=== PATIENT | female | born 1950 | race Caucasian/White ===

== ENCOUNTER 2021-04-29 09:39 | Inpatient (IN) | payer OTHER, MEDICAID, SELFPAY ==
[~2021-04-29] VITALS: Ht 149.9 cm; Wt 43.5 kg
[2021-04-29 09:57] VITALS: BP_SYST 138
--- NOTE | 2021-04-29 09:57 | NUR ---
Placed in room 5 . Placed on monitor worker, blood pressure machine and pulse oximeter. To gown for exam. Side rails up.
--- NOTE | 2021-04-29 09:58 | NUR ---
Pt came into the ER with complaint of abdominal pain 11/22 with N/V/D with incontinence bowel and bladder. Pt reports blood in urine last night. Pt maki spelvic prolapse. Pt is AAOX4 speaking full sentences with generalized weakness. Breathing is even and unlabored. VSS resting in gurney.
--- NOTE | 2021-04-29 10:05 | NUR ---
Pt placed on bedpan for urine specimen.
--- NOTE | 2021-04-29 10:19 | NUR ---
ER at bedside examining patient.
--- NOTE | 2021-04-29 10:20 | NUR ---
# 18 gauge angiocath placed to LAC. Use of asceptic technique. Opsite placed over site. Blood return noted. Blood for lab drawn from site. Flushed with 10 cc of normal saline. No evidence of infiltration noted. Patient tolerated well.
--- NOTE | 2021-04-29 10:20 | NUR ---
Blood collected and sent to lab.
[2021-04-29] MEDS ORDERED: NACL 0.9% 1,000 ML IV ONE (10:30)
--- NOTE | 2021-04-29 10:30 | NUR ---
Stool collected and sent to lab.
--- NOTE | 2021-04-29 10:35 | NUR ---
Covod swab collected and sent to lab.
[2021-04-29 10:39] LABS: HEMATOCRIT 38.7 % (36-48); HEMOGLOBIN 13.3 g/dL (12.0-16.0); MEAN CORPUSCULAR HEMOGLOBIN 31 pg (27-31); MEAN CORPUSCULAR HGB CONC 34 % (32-36); MEAN CORPUSCULAR VOLUME 89 fL (79.0-98.0); PLATELET COUNT (AUTO) 129 K/uL (130-430); RED BLOOD CELL COUNT(AUTO) 4.37 MIL/uL (4.2-6.2); RED CELL DISTRIBUTION WIDTH 13.3 % (9.0-15.0); WHITE BLOOD COUNT (AUTO) 23.5 K/uL (4.8-10.8)
--- NOTE | 2021-04-29 10:52 | NUR ---
Patient transported to radiology via wheelchair, accompanied by tech.
[2021-04-29 11:05] LABS: CALCIUM 8.8 mg/dL (8.4-11.0); CREATININE 1.03 mg/dL (0.55-1.30); POTASSIUM 3.2 mmol/L (3.5-5.1)
--- NOTE | 2021-04-29 11:11 | NUR ---
Pt back from CT.
[2021-04-29] MEDS ORDERED: cefTRIAXone 1 GM VIAL IM ONE (11:15)
--- NOTE | 2021-04-29 11:20 | NUR ---
Pt does not take any home medications
[2021-04-29] MEDS ORDERED: cefTRIAXone 1 GM VIAL ONE (11:28)
[2021-04-29] MEDS ORDERED: cefTRIAXone 1 GM in D5W 50 ML IV ONE (11:30)
--- NOTE | 2021-04-29 12:35 | NUR ---
Pt will go to 101A.
--- NOTE | 2021-04-29 12:35 | NUR ---
Called for a bed. Spoek with charge. Awaiting bed placement.
--- NOTE | 2021-04-29 12:43 | NUR ---
Patient will be admitted to care of Dr. Milan. Admitted to Medsurg unit. Will go to room 101A. Belongings list completed. Complete and up to date summary report printed. SBAR report to be given at bedside with opportunity for questions.
--- NOTE | 2021-04-29 12:44 | NUR ---
Transferred pt to [facility] floor on [facility] accompanied by staff.
[2021-04-29] MEDS ORDERED: POTASSIUM CHLORIDE 20 MEQ TAB.PRT.SR PO ONE (12:45)
[2021-04-29] MEDS: NACL 0.9% 1,000 ML IV SCH ×2 (13:45→23:33)
[2021-04-29] MEDS ORDERED: metroNIDAZOLE 500 mg/NS 100 ML IV SCH (14:00)
--- NOTE | 2021-04-29 14:11 | NUR ---
CONSULTATION PAGED/CALLED Reason for Consultation: [] BILATERAL HYDRONEPHROSIS Person Who was Notified: [] JULIA Consulting Physician: [] Ferny HERNANDEZ Production Weigher Specialty: [] UROLOGIST Ordering Physician: [] DR REYES
[2021-04-29] MEDS ORDERED: metroNIDAZOLE 500 mg/NS 100 ML IV ONE (14:15)
[2021-04-29 14:34] VITALS: BP_SYST 169
[2021-04-29 15:00] VITALS: BP_SYST 110
[2021-04-29 15:12] LABS: BAND % (MANUAL) 25 % (0-6); BASOPHILS % (MANUAL) 0 % (0-2); EOSINOPHILS % (MANUAL) 0 % (0-7); LYMPHOCYTES % (MANUAL) 1 % (20-46); MONOCYTES % (MANUAL) 1 % (0-11)
[2021-04-29] MEDS: VANCOMYCIN HCL ORAL SOLUTION 250 MG/5 ML, 80 ML PO SCH ×3 (15:35→21:05)
[2021-04-29 15:36] VITALS: BP_SYST 147
--- NOTE | 2021-04-29 16:08 | NUR ---
ALERT, ORIENTED, ANXIOUS LOOKING WOMAN, KEEPS ON HOLDING HER PRIVATE AREA, " CANT HOLD MY URINE, NOR MY BOWEL MOVEMENT. TOOK WEAK TO GET TO THE BATHROOM, RIGHT NOW ON DIAPER, WHICH NEEDS BEING CHANGED OFTEN. UTERINE PROLAPSE NOTICEABLY, ( OUTSIDE THE PUBIC AREA), TOTAL CARE. IVF STARTS AND VANCO PO GIVEN FOR C DIFF. FLAGYL IVPB JUST NOW BEGUN, SECONDARY TO UTI ( WHICH HAS HAPPENED FOR THIS PATIENT)
--- NOTE | 2021-04-29 18:48 | NUR ---
DR LYNCH CALLED, AND ALVES #16 INSERTED, WITHOUT ANY PROBLEM, DESPITE THE UTERINE PROLAPSE. DIARRHEA SUBSIDED.
--- NOTE | 2021-04-29 19:15 | NUR ---
OPENING NOTE REPORT RECEIVED FROM DAYSHIFT NURSE. PATIENT RECEIVED LYING IN BED, AWAKE, NO S/S OF ACUTE DISTRESS NOTED. BREATHING EVEN AND UNLABORED. HOB SLIGHTLY RAISED, DRINKING WATER. IVF INFUSING WELL, IV SITE PATENT, NO SIGNS OF INFILTRATION OR INFECTION NOTED. ALVES ATTACHED, SECURED, AND DRAINING BY GRAVITY. CALL LIGHT WITH PATIENT. BED ALARM ON. BED IS LOCKED AND AT LOWEST POSITION. WILL CONTINUE TO MONITOR.
[2021-04-29 20:00] VITALS: BP_SYST 138
[2021-04-29] MEDS: metroNIDAZOLE 500 mg/NS 100 ML IV SCH (21:05)
--- NOTE | 2021-04-29 21:05 | NUR ---
MED PASS/REFUSED MIDNIGHT VITALS SCHEDULED MEDICATIONS ADMINISTERED AT THIS TIME. PATIENT STATED THAT SHE WANTS TO SLEEP, SHE HASNT GOTTEN GOOD SLEEP LATELY, PATIENT REQUESTED NOT TO BE WOKEN UP AT MIDNIGHT FOR VITALS. PATIENT EDUCATED ON PURPOSE AND BENEFITS OF VITAL SIGNS, PATIENT VERBALIZED UNDERSTANDING AND STILL REFUSES. WILL CONTINUE TO MONITOR, CALL LIGHT WITH PATIENT. BED ALARM ON.
--- NOTE | 2021-04-30 00:45 | NUR ---
ROUNDS PATIENT IN BED, ASLEEP, NO SIGNS OF DISCOMFORT NOTED. CHEST RISE AND FALL EVEN BILATERALLY. IVF INFUSING WELL. CALL LIGHT WITH PATIENT. WILL CONTINUE TO MONITOR.
[2021-04-30 03:54] LABS: COLOR,URINE STRAW (YELLOW)
[2021-04-30 03:55] LABS: BILIRUBIN,URINE NEGATIVE (NEGATIVE); BLOOD, URINE 3+ (NEGATIVE); CLARITY/URINE HAZY (CLEAR); GLUCOSE,URINE NEGATIVE (NEGATIVE); KETONES,URINE NEGATIVE (NEGATIVE); PROTEIN URINE TRACE (NEGATIVE)
[2021-04-30 03:56] LABS: LEUKOCYTE ESTERASE ,URINE 3+ (NEGATIVE); NITRITE, URINE NEGATIVE (NEGATIVE); UROBILINOGEN,URINE 0.2 (0.2-1.0)
[2021-04-30 03:58] LABS: RBC,URINE 0-3 /HPF (0-3); WBC,URINE 50-80 /HPF (0-3)
[2021-04-30 03:59] LABS: BACTERIA,URINE FEW /HPF (None Seen)
[2021-04-30] MEDS: metroNIDAZOLE 500 mg/NS 100 ML IV SCH ×3 (05:07→22:07)
--- NOTE | 2021-04-30 06:31 | NUR ---
CLOSING NOTE PATIENT IN BED, SLEEPING. NO S/S OF ACUTE DISTRESS NOTED. BREATHING EVEN AND UNLABORED. IVF INFUSING WELL. IV SITE PATENT, NO SIGNS OF INFILTRATION OR INFECTION NOTED. ALVES ATTACHED, SECURED, AND DRAINING BY GRAVITY. ALL NEEDS MET THROUGHOUT SHIFT. FALL, SAFETY PRECAUTIONS MAINTAINED THROUGHOUT SHIFT. WILL CONTINUE TO MONITOR UNTIL PATIENT CARE IS ENDORSED TO ONCOMING DAYSHIFT NURSE.
[2021-04-30 08:00] VITALS: BP_SYST 124
[2021-04-30] MEDS: VANCOMYCIN HCL ORAL SOLUTION 250 MG/5 ML, 80 ML PO SCH ×4 (08:48→22:08)
[2021-04-30] MEDS: NACL 0.9% 1,000 ML IV SCH ×2 (08:50→19:45)
--- NOTE | 2021-04-30 09:05 | NUR ---
CONSULTATION PAGED REASON FOR CONSULTATION:PROLAPSED UTERUS WAS CONSULT CALLED?Y PERSON WHO WAS NOTIFIED:LEFT A VOICEMAIL WITH JESSIKA CONSULTING PHYSICIAN:KEVIN FERRER RN LABOR DELIVERY SPECIALTY:INFORMATION TECHNOLOGY SECURITY MANAGER RN LABOR DELIVERY PHONE NUMBER:[phone] REQUESTING PHYSICIAN:LETI TRINH
--- NOTE | 2021-04-30 10:09 | NUR ---
Nutrition Update Drew Scale 16 noted. Pt admitted for elevated WBC, diarrhea. Diet: clear liquid BMI: 19.4 kg/m2 RD to follow per nutrition care standards.
[2021-04-30 11:29] VITALS: BP_SYST 120
--- NOTE | 2021-04-30 11:53 | NUR ---
CONSULTATION PAGED REASON FOR CONSULTATION:SEPSIS WAS CONSULT CALLED?Y PERSON WHO WAS NOTIFIED:MARCK CONSULTING PHYSICIAN:RATNA MOSER SUPERVISOR FURNACE ROOM SPECIALTY:INFECTIOUS DISEASE SUPERVISOR FURNACE ROOM PHONE NUMBER:[phone] REQUESTING PHYSICIAN:FRANCISCO J VALDEZ
[2021-04-30 12:02] VITALS: BP_SYST 125
--- NOTE | 2021-04-30 14:10 | NUR ---
Dr. Lynn (OPERATIONS ADVISOR) rounds assessed patient at bedside, answered her questions, spoke with patient regarding Pessary placement vs outpatient surgery - the patient will think about what to do. She does have a place to live after potential surgery with her friend. The patient was living in her van and was seeing an brickmason apprentice in [place] (Dr. Zuniga) before hospital admit - the plan was to do surgery to fix her prolapsed uterus on May 16.
--- NOTE | 2021-04-30 14:45 | NUR ---
Dietitian Recommendations * Recommend continuing clear liquid diet (Ensure Clear TID comes standard w/ current diet; provides 720 kcal/day, 24 gm protein/day) * Encourage increase PO intakes * Consider advance to cardiac diet if/when medically appropriate LP, RD Please refer to Nutrition Assessment for details. Addendum: 04/30/21 at [address] Amended: Links added.
[2021-04-30 15:20] VITALS: BP_SYST 109
[2021-04-30 16:00] VITALS: BP_SYST 115
[2021-04-30] MEDS ORDERED: traZODone HCL 50 MG TABLET (DESYREL) PO PRN (18:45)
--- NOTE | 2021-04-30 18:54 | NUR ---
Obtained orders from Dr Michelle. Pt is sitting up on bed, eating dinner
[2021-04-30 21:00] VITALS: BP_SYST 124
[2021-05-01] MEDS: metroNIDAZOLE 500 mg/NS 100 ML IV SCH ×3 (05:30→21:36)
[2021-05-01] MEDS: NACL 0.9% 1,000 ML IV SCH ×2 (06:08→13:57)
--- NOTE | 2021-05-01 08:00 | NUR ---
AM NOTES PT IN BED. A/OX4. DENIES ANY PAIN AT THIS TIME. VITALS STABLE. RES EVEN AND UNLABORED.LEFT FOREARM #20 . IV SITE PATENT. IVF INFUSING WELL. SAFETY/FALL PRECAUTIONS IN PLACE. BED LOCKED AND IN LOW POSITION. CALL LIGHT WITHIN REACH. POC DISCUSSED WITH PT. VERBALIZED UNDERSTANDING. WILL CONTINUE TO MONITOR
[2021-05-01 08:03] VITALS: BP_SYST 119
[2021-05-01] MEDS: FAMOTIDINE 20 MG TABLET PO SCH (09:00)
[2021-05-01] MEDS: VANCOMYCIN HCL ORAL SOLUTION 250 MG/5 ML, 80 ML PO SCH ×4 (09:03→21:32)
[2021-05-01 09:31] LABS: EOSINOPHILS # (AUTO) 0.1 K/uL (0.0-0.4); MEAN CORPUSCULAR HEMOGLOBIN 31 pg (27-31); MEAN CORPUSCULAR HGB CONC 34 % (32-36); MEAN CORPUSCULAR VOLUME 90 fL (79.0-98.0); WHITE BLOOD COUNT (AUTO) 10.8 K/uL (4.8-10.8)
[2021-05-01 10:27] LABS: CALCIUM 7.8 mg/dL (8.4-11.0); CREATININE 0.94 mg/dL (0.55-1.30); POTASSIUM 3.2 mmol/L (3.5-5.1)
[2021-05-01 11:28] VITALS: BP_SYST 121
[2021-05-01 12:09] LABS: C-REACTIVE PROTEIN QUANT 11.6 mg/dL (0-0.5)
[2021-05-01] MEDS ORDERED: POTASSIUM CHLORIDE 20 MEQ TAB.PRT.SR PO ONE (13:15)
[2021-05-01 13:47] LABS: BASOPHILS # (AUTO) 0.1 K/uL (0.0-0.2); BASOPHILS % (AUTO) 0.5 % (0.0-2.0); EOSINOPHILS % (AUTO) 0.6 % (0.0-4.0); HEMATOCRIT 32.9 % (36-48); HEMOGLOBIN 11.3 g/dL (12.0-16.0); LYMPHOCYTES % (AUTO) 8.8 % (20.5-51.5); MONOCYTES # (AUTO) 0.9 K/uL (0.0-1.0); MONOCYTES % (AUTO) 8.6 % (1.7-9.3); NEUTROPHILS # (AUTO) 8.8 K/uL (1.8-7.7); NEUTROPHILS % (AUTO) 81.5 % (40.0-70.0); PLATELET COUNT (AUTO) 119 K/uL (130-430); RED BLOOD CELL COUNT(AUTO) 3.66 MIL/uL (4.2-6.2); RED CELL DISTRIBUTION WIDTH 13.7 % (9.0-15.0)
--- NOTE | 2021-05-01 14:00 | NUR ---
rounds pt stable not in acute distress. assisted pt to bedside commode. pt is having diarrhea. pt cleaned linen changed. needs attended. will conitnue to monitor
[2021-05-01 15:37] VITALS: BP_SYST 141
[2021-05-01 15:58] LABS: ERYTHROCYTE SEDIMENTATION RATE 50 MM/HR (0-20)
--- NOTE | 2021-05-01 18:29 | NUR ---
called pt wanted to talk to dr trejo. paged dr trejo. called back . dr trejo talking to pt on the phone.
--- NOTE | 2021-05-01 19:30 | NUR ---
OPENING NOTES RECEIVED PATIENT IN BED AAO X4. BREATHING UNLABORED ON ROOM AIR. IVF INFUSING ORDERED. NO C/O PAIN. BED IN LOWEST LOCKED [id number] WITH ALARM ON.
--- NOTE | 2021-05-01 20:49 | NUR ---
Paged Dr. Kimi Michelle [phone] s/w Amie
[2021-05-01 21:26] VITALS: BP_SYST 134
[2021-05-01] MEDS: ZOLPIDEM TARTRATE 5 MG TABLET PO PRN (21:36)
--- NOTE | 2021-05-01 21:36 | NUR ---
MED PASS PATIENT DUE MEDICATIONS GIVEN. VITAL SIGNS STABLE. PATIENT ASSISTED WITH BEDSIDE COMMODE USE.
--- NOTE | 2021-05-02 01:40 | NUR ---
ROUNDS PATIENT RESTING IN BED. NO DISTRESS NOTED. IVF INFUSING.
[2021-05-02] MEDS: NACL 0.9% 1,000 ML IV SCH ×3 (01:46→21:01)
--- NOTE | 2021-05-02 03:21 | NUR ---
OOB ASSISTED PATIENT WITH BEDSIDE [id number] USE.
[2021-05-02 04:01] VITALS: BP_SYST 126
[2021-05-02] MEDS: metroNIDAZOLE 500 mg/NS 100 ML IV SCH (06:00)
--- NOTE | 2021-05-02 06:51 | NUR ---
CLOSING NOTES NO CHANGE IN PATIENT CONDITION. PATIENT NEEDS ATTENDED.
[2021-05-02 06:58] LABS: ALBUMIN 1.9 g/dL (3.4-4.8); CALCIUM 7.4 mg/dL (8.4-11.0); CREATININE 0.93 mg/dL (0.55-1.30); POTASSIUM 3.5 mmol/L (3.5-5.1); TOTAL BILIRUBIN 0.3 mg/dL (0.0-1.0)
[2021-05-02 08:00] VITALS: BP_SYST 138
[2021-05-02 08:00] LABS: BASOPHILS % (AUTO) 0.4 % (0.0-2.0); EOSINOPHILS # (AUTO) 0.1 K/uL (0.0-0.4); EOSINOPHILS % (AUTO) 0.7 % (0.0-4.0); HEMOGLOBIN 11.1 g/dL (12.0-16.0); LYMPHOCYTES # (AUTO) 1.2 K/uL (1.0-5.5); LYMPHOCYTES % (AUTO) 12.3 % (20.5-51.5); MEAN CORPUSCULAR HEMOGLOBIN 30 pg (27-31); MEAN CORPUSCULAR HGB CONC 34 % (32-36); MEAN CORPUSCULAR VOLUME 90 fL (79.0-98.0); MONOCYTES # (AUTO) 1.1 K/uL (0.0-1.0); MONOCYTES % (AUTO) 11.1 % (1.7-9.3); NEUTROPHILS # (AUTO) 7.7 K/uL (1.8-7.7); NEUTROPHILS % (AUTO) 75.5 % (40.0-70.0); PLATELET COUNT (AUTO) 128 K/uL (130-430); RED BLOOD CELL COUNT(AUTO) 3.68 MIL/uL (4.2-6.2); RED CELL DISTRIBUTION WIDTH 13.4 % (9.0-15.0); WHITE BLOOD COUNT (AUTO) 10.2 K/uL (4.8-10.8)
--- NOTE | 2021-05-02 08:10 | NUR ---
OPENING NOTES: PATIENT EATING BREAKFAST. BREATHING EVEN AND NON LABORED TO RA. IV INFUSING WELL. FALL, SAFETY AND ASPIRATION PRECAUTION REINFORCED. CALL LIGHT WITHIN REACH. WILL CONTINUE MONITOR UNTIL ENDORSE TO COGNOS ANALYST RN.
[2021-05-02] MEDS: FAMOTIDINE 20 MG TABLET PO SCH ×2 (09:00→09:15)
[2021-05-02] MEDS: VANCOMYCIN HCL ORAL SOLUTION 250 MG/5 ML, 80 ML PO SCH (09:19)
[2021-05-02] MEDS ORDERED: metroNIDAZOLE 500 MG TABLET PO ONE ×2 (10:15)
--- NOTE | 2021-05-02 10:45 | NUR ---
CONSULTATION PAGED REASON FOR CONSULTATION:DIARRHEA WAS CONSULT CALLED?Y PERSON WHO WAS NOTIFIED:BARRY CONSULTING PHYSICIAN:RODOLFO RAE SUSTAINABILITY ANALYST SPECIALTY:GI SUSTAINABILITY ANALYST PHONE NUMBER:[phone] REQUESTING PHYSICIAN:NITA BECK
[2021-05-02 11:54] LABS: ERYTHROCYTE SEDIMENTATION RATE 58 MM/HR (0-20)
--- NOTE | 2021-05-02 12:16 | NUR ---
DISCHARGE PLANNING This am received call from Emperatriz at [facility] that received msg from Dr Milan. Spoke with pt at bedside & discussed dc planning with pt. Pt was living at [facility] in [place] until recently when came to live with her friend in [place]. States that has spoken with Dr Milan & plan will be for SNF & is agreeable with SNF. Gave pt list of SNF's & states that not from this area & has no preference, [facility] where Dr Milan can follow her is her preference. States once she is discharged from SNF she is going back to live with her friend in [place]. Address for friend: [address]
[2021-05-02 12:30] VITALS: BP_SYST 132
[2021-05-02 13:33] LABS: C-REACTIVE PROTEIN QUANT 7.6 mg/dL (0-0.5)
[2021-05-02] MEDS ORDERED: metroNIDAZOLE 500 MG TABLET PO SCH ×2 (14:00)
[2021-05-02 16:01] VITALS: BP_SYST 135
--- NOTE | 2021-05-02 16:40 | NUR ---
ID MD DR LINWOOD HINDS WAS CALLED RE: POSITIVE BLOOD CULTURE. SPOKE TO FRANCISCO.
--- NOTE | 2021-05-02 17:00 | NUR ---
SPOKE TO DR. HINDS ( RESULT): REPORTED BLOOD CULTURE RESULT TO DR. HINDS. BLOOD CULTURE GRAM NEGATIVE RODS. PER DR. HINDS DISCONTINUE FLAGYL AND ROCEPHIN AND START MEROPENEM 1 GRAM IV Q8H. ORDER WAS ENTERED.
[2021-05-02] MEDS ORDERED: GENTAMICIN SULFATE 200 MG in NS 100 ML IV ONE (19:00)
--- NOTE | 2021-05-02 19:15 | NUR ---
OPENING NOTES: Received patient report from morning shift nurse. Patient in bed, AAOx4, breathing evenly and nonlabored on room air, no s/s of distress. Patient has an IV on the LFA 20G, patent, benign, and flushing. No s/s of infection or infiltration. Patient has a rivera catheter secured and draining by gravity. Educated patient on plan of care and call light use. Patient refusing bed alarm. Educated benefits and harms. Patient verbalized understanding and is still refusing bed alarm. Educated patient email production specialist light use for assistance to bedside commode. Patient verbalized understanding with return demonstration. Fall/safety precaution. Will continue to monitor.
--- NOTE | 2021-05-02 19:33 | NUR ---
CLOSING NOTES: PATIENT RESTING IN BED. NO S/S OF ACUTE DISTRESS NOTED. FALL, SAFETY AND ASPIRATION MEASURES PROVIDED. CALL LIGHT WITHIN REACH.
[2021-05-02 20:00] VITALS: BP_SYST 151
[2021-05-02] MEDS: ZOLPIDEM TARTRATE 5 MG TABLET PO PRN (21:01)
[2021-05-02] MEDS: MEROPENEM 1 GM in NS 100 ML IV SCH (21:02)
[2021-05-03] VITALS: BP_SYST 149
--- NOTE | 2021-05-03 | NUR ---
ROUNDS: Patient in bed, eyes closed, breathing evenly and nonlabored on room air, no s/s of distress. Will continue to monitor.
[2021-05-03] MEDS: MEROPENEM 1 GM in NS 100 ML IV SCH ×3 (05:27→21:03)
[2021-05-03] MEDS: NACL 0.9% 1,000 ML IV SCH ×2 (05:28→16:55)
--- NOTE | 2021-05-03 06:31 | NUR ---
CLOSING NOTES: Patient in bed, AAOx4, breathing evenly and nonlabored on room air, no s/s of distress. Patient has an IV on the LFA 20G, patent, benign, and flushing. No s/s of infection or infiltration. Patient has a rivera catheter secured and draining by gravity. Fall/safety precaution. Will continue to monitor and endorse care to morning shift nurse. All needs met at this time.
[2021-05-03 06:54] LABS: BASOPHILS # (AUTO) 0.1 K/uL (0.0-0.2); BASOPHILS % (AUTO) 0.6 % (0.0-2.0); EOSINOPHILS # (AUTO) 0.1 K/uL (0.0-0.4); HEMATOCRIT 33.9 % (36-48); HEMOGLOBIN 11.5 g/dL (12.0-16.0); LYMPHOCYTES # (AUTO) 1.2 K/uL (1.0-5.5); LYMPHOCYTES % (AUTO) 12.6 % (20.5-51.5); MEAN CORPUSCULAR HEMOGLOBIN 30 pg (27-31); MEAN CORPUSCULAR HGB CONC 34 % (32-36); MEAN CORPUSCULAR VOLUME 89 fL (79.0-98.0); MONOCYTES # (AUTO) 1.1 K/uL (0.0-1.0); NEUTROPHILS # (AUTO) 7.4 K/uL (1.8-7.7); NEUTROPHILS % (AUTO) 74.8 % (40.0-70.0); PLATELET COUNT (AUTO) 176 K/uL (130-430); RED BLOOD CELL COUNT(AUTO) 3.81 MIL/uL (4.2-6.2); RED CELL DISTRIBUTION WIDTH 13.4 % (9.0-15.0); WHITE BLOOD COUNT (AUTO) 9.8 K/uL (4.8-10.8)
[2021-05-03 07:16] LABS: ALBUMIN 1.8 g/dL (3.4-4.8); CALCIUM 7.5 mg/dL (8.4-11.0); CREATININE 0.98 mg/dL (0.55-1.30); POTASSIUM 3.3 mmol/L (3.5-5.1); TOTAL BILIRUBIN 0.3 mg/dL (0.0-1.0)
--- NOTE | 2021-05-03 08:03 | NUR ---
OPENING NOTES: PATIENT EATING BREAKFAST. BREATHING EVEN AND NON LABORED TO RA. IV INFUSING WELL. FALL, SAFETY AND ASPIRATION PRECAUTION REINFORCED. CALL LIGHT WITHIN REACH. WILL CONTINUE MONITOR PATIENT.
[2021-05-03 08:52] VITALS: BP_SYST 143
[2021-05-03] MEDS: FAMOTIDINE 20 MG TABLET PO SCH (09:00)
[2021-05-03] MEDS: LACTOBACILLUS RHAMNOSUS GG 1 CAP CAPSULE PO SCH ×2 (10:18→21:02)
[2021-05-03 11:28] VITALS: BP_SYST 153
--- NOTE | 2021-05-03 11:34 | NUR ---
DISCHARGE PLANNING Discussed plan of care with Dr Milan. Per Dr Lynn's notes not ideal candidate for surgery at this time due to sepsis. Plan will be to dc to snf to clear up infection(IV abx) & for PT. Dr Milan will discuss with Md regarding surgery at future date when infection clear. Discussed plan of care with pt and is agreeable with plan for dc to SNF, but wants surgery to be scheduled once clear of infection, informed to discuss with Dr Milan, states she will discuss with Dr Milan. Faxed referral to [facility]. Received call back from Emperatriz at [facility] & pt accepted, informed no dc order yet. [facility] .
[2021-05-03] MEDS: LIPASE/PROTEASE/AMYLASE 1 CAP PO SCH ×2 (12:00→17:13)
--- NOTE | 2021-05-03 14:07 | NUR ---
Nutrition F/U internet marketing intern reviewed pt's current EMR record including diet Hx, physician notes, nursing notes, pertinent labs/meds/procedures, care trends, and care activity. Admitting Diagnosis Elevated WBC, diarrhea Medical History Comment: PMH: HLD and diverticulitis per physician notes Pt also found w/ possible sepsis, C. diff, and severe bilat hydronephrosis, UTI, Diarrhea, and pelvic organ prolapse per physician notes SARS-CoV-2 Ag (Rapid) Negative 04/29 Subjective Information internet marketing intern rounded to pts room. Pt was awake and oriented. Pt was annoyed that she got hamburger sandwich yesterday and pt wasnt able to digest foods. Pt stated she is allergic to dairy, onions, and soy. Pt likes fish, caffeinated tea, apple or grape juice, mashed potato and Ensure Enlive in the morning. Pt reported that she was having diarrhea for more than one week. Per EMR review, abd is soft w/ active bowel sound, BM x1 / and x5 /, kelly scale: 20 no PIs noted, pt eats 46% of x12 meals. Pt would benefit continuing GI soft diet and add Ensure Enlive BID to help with nutritional needs. Current Diet Order/Nutrition Support GI soft diet x2 days Pertinent Labs WBC 9.8WNL, K 3.3L, BUN 15 WNL, BG 100 H, Ca 7.5L, Albumin 1.8L Height: 4 feet, 11.00 inches (04/30) stable Weight : 96 pounds, 43.235242 kilograms Body Mass Index: 19.39 kg/m2 Usual Weight :96 lbs %UBW : 100 %IBW : 98 [place]/Adjusted Body Weight : IBW: 98#/45 kg Gastrointestinal Symptoms Diarrhea Estimated Energy Expenditure (kcals/day) 9618-1562 kcal/day (30-35 kcal/kg CBW d/t possible sepsis) Estimated Protein Required (g/day) 66-88 gm/day (1.5-2 gm/kg CBW d/t possible sepsis) Estimated Fluid Required (l/day) 1.3-1.5 L/day (1 ml/kcal/day for maintenance) Problem/Etiology/Signs/Symptoms Increased nutritional needs related to metabolic demands as evidenced by estimated nutritional requirements for sepsis. *Ongoing* Altered GI function r/t ?etiology AEB diarrhea. (*new) Expected Outcomes/Goals - Monitor appetite and PO intakes w/ goal of pt meeting at least 75% of estimated nutritional needs, labs trending WNL, normal GI function, and skin integrity/wt maintenance Dietitian Recommendations * Recommend continuing GI soft diet w/ Ensure Enlive BID (ONS provide 700 kcal, 40gm protein) * Recommend: Banatrol TID for diarrhea. * Encourage increase PO intakes Follow Up Moderate risk: F/U in 3-5 days
--- NOTE | 2021-05-03 14:11 | NUR ---
Dietitian Recommendations * Recommend continuing GI soft diet w/ Ensure Enlive BID (ONS provide 700 kcal, 40gm protein) * Recommend: Banatrol TID for diarrhea. * Encourage increase PO intakes Please see Nutrition F/U note
[2021-05-03 15:46] VITALS: BP_SYST 142
--- NOTE | 2021-05-03 16:51 | NUR ---
ATTEMPTED TO SEE PATIENT AT 1651, HOWEVER, REFUSED TREATMENT DUE TO URINARY PRESSURE/PAIN AT 01/22, PATIENT STATED, " I WILL TRY TOMORROW".
--- NOTE | 2021-05-03 18:40 | NUR ---
CLOSING NOTES: PATIENT RESTING IN BED. NO S/S OF ACUTE DISTRESS NOTED. DENIES DISCOMFORT AT THIS TIME. IV INFUSING WELL. FALL AND SAFETY MEASURES PROVIDED. CALL LIGHT WITHIN REACH.
--- NOTE | 2021-05-03 19:15 | NUR ---
OPENING NOTES: Received patient report from morning shift nurse. Patient in bed, AAOx4, breathing evenly and nonlabored on room air, no s/s of distress. Patient has an IV on the LFA 20G, patent, benign, and flushing. No s/s of infection or infiltration. Patient has a rivera catheter secured and draining by gravity. Educated patient on plan of care and call light use. Patient refusing bed alarm. Educated benefits and harms. Patient verbalized understanding and is still refusing bed alarm. Educated patient claims correspondence clerk light use for assistance to bedside commode. Patient verbalized understanding with return demonstration. Will continue to monitor.
[2021-05-03 20:00] VITALS: BP_SYST 153
[2021-05-03] MEDS: ZOLPIDEM TARTRATE 5 MG TABLET PO PRN (21:02)
[2021-05-03 23:39] VITALS: BP_SYST 145
--- NOTE | 2021-05-04 | NUR ---
ROUNDS: Patient in bed, eyes closed, breathing evenly and nonlabored on room air, no s/s of distress.Will continue to monitor.
[2021-05-04] MEDS: MEROPENEM 1 GM in NS 100 ML IV SCH ×3 (05:23→22:00)
[2021-05-04] MEDS: NACL 0.9% 1,000 ML IV SCH (05:24)
[2021-05-04 09:06] VITALS: BP_SYST 158
[2021-05-04] MEDS: LACTOBACILLUS RHAMNOSUS GG 1 CAP CAPSULE PO SCH ×2 (09:33→21:00)
[2021-05-04] MEDS: FAMOTIDINE 20 MG TABLET PO SCH (09:33)
[2021-05-04] MEDS ORDERED: BISMUTH SUBSALICYLATE 262 MG TAB.CHEW PO PRN (10:45)
[2021-05-04 11:19] VITALS: BP_SYST 149
--- NOTE | 2021-05-04 19:30 | NUR ---
Opening note Received patient report from morning nurse. Patient in bed, AAOx4, nonlabored on room air, no s/s of SOB. Infiltration noted due to IV leaking and complaining of discomfort. IV reinserted on L wrist 20g, flushes well and no compliant of discomfort, has blood return. Gee catheter secured to side of bed and draining by gravity well with clear yellow output. Educated patient on plan of care and call light usage for assistance to bedside commode. Patient verbalized understanding. All needs provided.
[2021-05-04 20:00] VITALS: BP_SYST 138
[2021-05-04 23:25] VITALS: BP_SYST 156
--- NOTE | 2021-05-05 | NUR ---
note pt resting, no distress or discomfort at this time. all needs provided
--- NOTE | 2021-05-05 06:35 | NUR ---
Closing note Patient resting in bed, AAOx4, nonlabored on room air, no s/s of SOB. IV patent and intact, no complications noted at this time. Gee catheter secured to side of bed and draining by gravity well with clear yellow output. Slept well throughout the night. Call light within reach. Bed to lowest/locked. On aspiration/fall precaution.
[2021-05-05] MEDS: MEROPENEM 1 GM in NS 100 ML IV SCH ×3 (07:24→22:23)
[2021-05-05 08:15] VITALS: BP_SYST 177
[2021-05-05] MEDS: LIPASE/PROTEASE/AMYLASE 1 CAP PO SCH ×4 (08:44→12:29)
[2021-05-05] MEDS: FAMOTIDINE 20 MG TABLET PO SCH ×2 (08:45→08:47)
[2021-05-05] MEDS: LACTOBACILLUS RHAMNOSUS GG 1 CAP CAPSULE PO SCH ×2 (08:45→08:47)
[2021-05-05] MEDS ORDERED: LOPERAMIDE HCL 2 MG CAPSULE PO PRN (10:15)
[2021-05-05 12:22] VITALS: BP_SYST 154
--- NOTE | 2021-05-05 16:40 | NUR ---
Attempted to seen patient for Physical Therapy treatment, patient refused all forms. Suggested that she at least do arom exercises to both legs. Patient stated, " I do not want to do anything".
[2021-05-05 17:53] VITALS: BP_SYST 146
--- NOTE | 2021-05-05 19:30 | NUR ---
Opening note Received patient report from morning nurse. Patient in bed, AAOx3, nonlabored on room air, no s/s of SOB. Pt complicate something is wrong with the IV site. No leaking or blood noted at site, no redness or swelling. Flushed IV with NS, pt states it is ok right now but something is wrong with it. Gee catheter secured to side of bed and draining by gravity well with clear yellow output. Educated patient on plan of care and call light usage for assistance to bedside commode. Patient verbalized understanding. All needs provided. Bed to lowest/locked. On aspiration/fall precaution.
[2021-05-05 20:00] VITALS: BP_SYST 130
[2021-05-05] MEDS: ZOLPIDEM TARTRATE 5 MG TABLET PO PRN (21:23)
--- NOTE | 2021-05-06 | NUR ---
note pt seems anxious regarding digestion. Mentioned taking a medication before meals but does note recall what the medication was. Reminded pt is currently taking culturelle for digestive aid. Pt strongly suggesting she needs to take this medication before every meal. Reorient and reeducation pt on this medication and risks of take more than directed by MD. Pt kept insisting stating no one understands her. Will continue to reinforce education.
[2021-05-06 00:18] VITALS: BP_SYST 152
[2021-05-06] MEDS: MEROPENEM 1 GM in NS 100 ML IV SCH ×3 (05:05→22:08)
--- NOTE | 2021-05-06 06:42 | NUR ---
Closing note Patient in bed, AAOx3, nonlabored on room air, no s/s of SOB. IV patent and intact, no complications at site. Gee catheter secured to side of bed and draining by gravity well with clear yellow output, no discomfort noted. Educated patient on plan of care and call light usage for assistance to bedside commode. Pt is non compliant at times. All needs provided with skin care and linen change. Bed to lowest/locked. On aspiration/fall precaution. Will endorse to day nurse.
[2021-05-06] MEDS: LACTOBACILLUS RHAMNOSUS GG 1 CAP CAPSULE PO SCH ×2 (08:02→22:07)
[2021-05-06] MEDS: FAMOTIDINE 20 MG TABLET PO SCH (08:03)
[2021-05-06] MEDS: LIPASE/PROTEASE/AMYLASE 1 CAP PO SCH ×2 (08:03→16:50)
[2021-05-06 09:46] VITALS: BP_SYST 132
[2021-05-06 11:27] VITALS: BP_SYST 157
--- NOTE | 2021-05-06 14:47 | NUR ---
UROLOGIST DR LYNCH WAS CALLED, RE: BURNING FEELING WHILE URINATING. SPOKE TO YENNI.
--- NOTE | 2021-05-06 15:34 | NUR ---
alert, oriented, c/o burning on urination, rivera leaking, when checked the rivera, no leakage. attending on round, relayed the message about burning, no new order dr french paged x 1 for the same problem
[2021-05-06 15:35] VITALS: BP_SYST 155
--- NOTE | 2021-05-06 16:12 | NUR ---
double checked, triple checked, no leakage, demands a new one in, #16 in just now no problem.
--- NOTE | 2021-05-06 18:11 | NUR ---
seen by BUSINESS CENTER REPRESENTATIVE, dr Lynn, referrring to pelvic prolapse, patient declined vaginal pessary. a new rivera in by the BUSINESS CENTER REPRESENTATIVE aleksandr.
[2021-05-06 21:00] VITALS: BP_SYST 150
[2021-05-07 00:12] VITALS: BP_SYST 133; BP_SYST 146
[2021-05-07] MEDS: MEROPENEM 1 GM in NS 100 ML IV SCH ×3 (06:00→22:11)
[2021-05-07 08:00] VITALS: BP_SYST 139
[2021-05-07] MEDS: LIPASE/PROTEASE/AMYLASE 1 CAP PO SCH ×3 (09:04→17:35)
[2021-05-07] MEDS: FAMOTIDINE 20 MG TABLET PO SCH (09:05)
[2021-05-07] MEDS: LACTOBACILLUS RHAMNOSUS GG 1 CAP CAPSULE PO SCH ×2 (09:05→22:02)
[2021-05-07] MEDS ORDERED: CEFA1FRO IV (11:58)
[2021-05-07] MEDS ORDERED: ZOLP5TAB2 PO (11:58)
[2021-05-07] MEDS ORDERED: PEPTAB PO (11:58)
[2021-05-07] MEDS ORDERED: AMYL1CAP54 PO (11:58)
[2021-05-07] MEDS ORDERED: FAMO20TA8 PO (11:58)
[2021-05-07] MEDS ORDERED: IMO2 PO (11:58)
[2021-05-07] MEDS ORDERED: LACT1CAP57 PO (11:58)
--- NOTE | 2021-05-07 15:20 | NUR ---
Nutrition F/U RD reviewed pt's current EMR record including diet Hx, physician notes, nursing notes, pertinent labs/meds/procedures, care trends, and care activity. Admitting Diagnosis Elevated WBC, diarrhea Medical History Comment: PMH: HLD and diverticulitis per physician notes Pt also found w/ possible sepsis, C. diff, and severe bilat hydronephrosis, UTI, Diarrhea, and pelvic organ prolapse per physician notes 05/07 Urology note reviewed: pt refused pessary placement SARS-CoV-2 Ag (Rapid) Negative 04/29 Subjective Information: RD rounded to pt's bedside. Pt reported that she has been eating better but prefers to drink liquids. Pt stated she did not receive lunch tray. Pt also reported that she does not care for Ensure Enlive ONS. BM x1 today, somewhat loose/soft per pt report. RD notified pt's primary RN who later delivered pt's meal tray. RD encouraged pt to gradually increase fiber intakes and fluid intakes once she is out of the hospital to optimize gut health. Pt inquired about fluid intakes as her arms have experienced some swelling -- RD encouraged pt to ask physician regarding goal for possible fluid restriction; pt acknowledged. Per EMR review, PO intake average of 28% x9 meals; last BM x3 05/06; Drew scale: 18, no PIs noted; plan to D/C to SNF w/ active D/C order in place. Pt is not yet meeting nutritional needs but current diet remains appropriate. Current Diet Order/Nutrition Support: Soft (low fiber/bland), Ensure Enlive BID, Banana Flakes TID x4 days Pertinent Labs: No new labs -- 05/03: WBC 9.8WNL, K 3.3L, BUN 15 WNL, BG 100 H, Ca 7.5L, Albumin 1.8L Height: 4'11" Weight: 96#/44 kg (04/30) -- stable Body Mass Index: 19.39 kg/m2 (underweight for geriatric age) Usual Weight: 96# %UBW: 100 %IBW: 98 [place]/Adjusted Body Weight: IBW: 98#/45 kg Estimated Energy Expenditure (kcals/day) 6700-0769 kcal/day (30-35 kcal/kg CBW d/t sepsis) Estimated Protein Required (g/day) 66-88 gm/day (1.5-2 gm/kg CBW d/t sepsis) Estimated Fluid Required (l/day) 1.3-1.5 L/day (1 ml/kcal/day for GERIAT maintenance) Problem/Etiology/Signs/Symptoms Increased nutritional needs related to metabolic demands as evidenced by estimated nutritional requirements for sepsis. *Ongoing* Altered GI function r/t ?etiology AEB diarrhea. (*Somewhat improving) Expected Outcomes/Goals - Monitor appetite and PO intakes w/ goal of pt meeting at least 75% of estimated nutritional needs, labs trending WNL, normal GI function, and skin integrity/wt maintenance Dietitian Recommendations * Recommend continuing soft (low fiber/bland) diet w/ Ensure Enlive BID and Banatrol TID (ONS provides 700 kcal/day, 40 gm protein/day) * Encourage increase PO intakes Follow Up Moderate risk: F/U in 3-5 days
--- NOTE | 2021-05-07 15:27 | NUR ---
Dietitian Recommendations * Recommend continuing soft (low fiber/bland) diet w/ Ensure Enlive BID and Banatrol TID (ONS provides 700 kcal/day, 40 gm protein/day) * Encourage increase PO intakes LP, RD Please refer to Nutrition F/U for details.
--- NOTE | 2021-05-07 19:30 | NUR ---
OPENING NOTE RECEIVED REPORT FROM DAY RN. PT SITTING ON BEDSIDE COMMODE. PT STATES SHE FEEL AN "URGE" TO URINATE. ALVES CATHETER INTACT DRAINING YELLOW FLUID BY GRAVITY. LEFT WRIST IV 24G INTACT. CALL LIGHT WITHIN REACH. SAFETY PRECAUTIONS IN PLACE. BED IN LOWEST AND LOCKED POSITION. WILL CONTINUE TO MONITOR.
--- NOTE | 2021-05-07 19:55 | NUR ---
IV DISLODGED. LEFT HAND IV UNABLE TO FLUSH AND DISLODGED. REMOVED WITH GAUZE APPLIED. NO ACTIVE BLEEDING. PT TOLERATED WELL.
[2021-05-07 20:00] VITALS: BP_SYST 175
--- NOTE | 2021-05-07 20:36 | NUR ---
LEFT HAND IV PLACED 22G. BLOOD RETURN. FLUSHES WELL. PT TOLERATED WELL. CONNECTED TO IV PUMP FOR ABX.
--- NOTE | 2021-05-07 20:45 | NUR ---
BLOOD PRESSURE ELEVATED. TAKEN ON RIGHT UPPER ARM. PT STATES SHE DOES NOT HAVE HYPERTENSION. PT STATES SHE HAS A SLIGHT HEADACHE. PT ANXIOUS ABOUT PLAN OF CARE AND FUTURE ANTIBIOTICS GIVEN.
[2021-05-07 20:56] VITALS: BP_SYST 182
--- NOTE | 2021-05-07 21:56 | NUR ---
BLOOD PRESSURE ELEVATED BP CONTINUES TO BE ELEVATED >160 SYSTOLIC. INFORMED PT THAT MD WILL BE NOTIFIED. EDUCATED PT ON SIDE EFFECTS OF HIGH BLOOD PRESSURE. PT VERBALIZED UNDERSTANDING.
--- NOTE | 2021-05-07 22:56 | NUR ---
Paged Dr. Michelle Malcolm
--- NOTE | 2021-05-07 23:07 | NUR ---
SPOKE WITH DR. HERNANDEZ NOTIFIED MD OF ELEVATED BLOOD PRESSURE. NEW ORDERS OF ANTIHYPERTENSION MEDICATIONS GIVEN. TO/RB. ORDERS PLACED.
[2021-05-07] MEDS ORDERED: cloNIDine HCL 0.1 MG TABLET PO PRN (23:15)
--- NOTE | 2021-05-07 23:19 | NUR ---
PT REFUSED BLOOD PRESSURE MEDICATION PT DOES NOT WANT TO TAKE BLOOD PRESSURE MEDICATION. PT EDUCATED ON IMPORTANCE OF MEDICATION AND ITS PREVENTATIVE FACTORS. PT CONTINUES TO REFUSE. BLOOD PRESSURE TAKEN AGAIN WITH A SLIGHTLY LOWER RESULT. WILL CONTINUE TO MONITOR PT.
[2021-05-07] MEDS: ZOLPIDEM TARTRATE 5 MG TABLET PO PRN (23:34)
--- NOTE | 2021-05-07 23:41 | NUR ---
PT C/O DIFFICULTY FALLING ASLEEP. PT REQUESTS PRN EDUARD. MEDICATION PULLED AND VERIFIED. ADMINISTERED PT TOLERATED WELL. WILL CONTINUE TO MONITOR.
[2021-05-08] VITALS: BP_SYST 172
--- NOTE | 2021-05-08 04:20 | NUR ---
BLOOD PRESSURE ELEVATED PT CONTINUES TO REFUSE PRN ANTIHYPERTENSION MEDICATION. EDUCATED PT ON ADVERSE EFFECTS OF HIGH BLOOD PRESSURE. PT VERBALIZED UNDERSTANDING BUT CONTINUES TO REFUSE MEDICATION. WILL CONTINUE TO MONITOR.
[2021-05-08] MEDS: MEROPENEM 1 GM in NS 100 ML IV SCH ×3 (05:30→21:31)
[2021-05-08 06:55] LABS: BASOPHILS % (AUTO) 0.7 % (0.0-2.0); EOSINOPHILS # (AUTO) 0.1 K/uL (0.0-0.4); EOSINOPHILS % (AUTO) 1.9 % (0.0-4.0); HEMATOCRIT 30.8 % (36-48); HEMOGLOBIN 10.8 g/dL (12.0-16.0); LYMPHOCYTES # (AUTO) 1.9 K/uL (1.0-5.5); LYMPHOCYTES % (AUTO) 27.1 % (20.5-51.5); MEAN CORPUSCULAR HEMOGLOBIN 31 pg (27-31); MEAN CORPUSCULAR HGB CONC 35 % (32-36); MEAN CORPUSCULAR VOLUME 87 fL (79.0-98.0); MONOCYTES # (AUTO) 0.7 K/uL (0.0-1.0); MONOCYTES % (AUTO) 9.9 % (1.7-9.3); NEUTROPHILS # (AUTO) 4.3 K/uL (1.8-7.7); NEUTROPHILS % (AUTO) 60.4 % (40.0-70.0); PLATELET COUNT (AUTO) 316 K/uL (130-430); RED BLOOD CELL COUNT(AUTO) 3.54 MIL/uL (4.2-6.2); RED CELL DISTRIBUTION WIDTH 13.2 % (9.0-15.0); WHITE BLOOD COUNT (AUTO) 7.1 K/uL (4.8-10.8)
[2021-05-08] MEDS: LIPASE/PROTEASE/AMYLASE 1 CAP PO SCH ×3 (07:43→17:30)
[2021-05-08 07:52] LABS: CALCIUM 7.7 mg/dL (8.4-11.0); CREATININE 0.71 mg/dL (0.55-1.30)
[2021-05-08 08:00] VITALS: BP_SYST 152
--- NOTE | 2021-05-08 08:00 | NUR ---
Initial notes awake, and oriented.sitting in the chair, denies any pain or discomfort. No distress, call light within reach, will monitor.
[2021-05-08 08:06] LABS: POTASSIUM 2.7 mmol/L (3.5-5.1)
--- NOTE | 2021-05-08 08:36 | NUR ---
ATTENDING MD CORE WINDER DR Kimi HERNANDEZ WAS PAGED, RE: CRITICAL K LEVEL OF 2.7.
[2021-05-08] MEDS ORDERED: POTASSIUM CHLORIDE 40 MEQ in NS 250 ML IV ONE (08:45)
--- NOTE | 2021-05-08 08:45 | NUR ---
HIGH ALERT NOTE: Called Dr. trejo back at [phone] identified within the medical roster to verify physician authenticity.
[2021-05-08] MEDS: FAMOTIDINE 20 MG TABLET PO SCH (09:43)
[2021-05-08] MEDS: LACTOBACILLUS RHAMNOSUS GG 1 CAP CAPSULE PO SCH ×2 (09:43→21:31)
--- NOTE | 2021-05-08 10:20 | NUR ---
notes patient is complaining that k rider is hurting, decrease rate but patient stated that she does not want it. spoke to Dr. Michelle and order to change it to oral.
[2021-05-08] MEDS ORDERED: POTASSIUM CHLORIDE 20 MEQ TAB.PRT.SR PO ONE ×2 (10:45→13:00)
--- NOTE | 2021-05-08 11:00 | NUR ---
Notes/ k rider- per patient it does not hurt her IV anymore and agreed to continue the K aliza at this time. will continue k ridjessica at this time and will monitor.
[2021-05-08 11:22] VITALS: BP_SYST 155
--- NOTE | 2021-05-08 12:00 | NUR ---
Md rounds Seen by Dr. Michelle and order to add 20meq of pottassium oral for total of 60meq.
[2021-05-08 12:58] LABS: ERYTHROCYTE SEDIMENTATION RATE 35 MM/HR (0-20)
--- NOTE | 2021-05-08 14:18 | NUR ---
CM : Booked [facility] Call status, BLS with [facility] per ANJALI Choi ' s request. The pt is to be transferred once finished K-rider. >> Confirmed with Lynda/Reinaldo Felton , pt's room # 1A , report # [phone]. ANJALI Choi aware.
[2021-05-08 15:27] VITALS: BP_SYST 140
--- NOTE | 2021-05-08 16:25 | NUR ---
MD rounds Seen by Dr. Mcdonald at bedside, per Dr. Mcdonald to keep patient NPO and cancel transfer to SNF at this time.
--- NOTE | 2021-05-08 18:14 | NUR ---
CLOSING NOTES EATING DINNER, DENIES ANY PAIN OR DISCOMFORT. NO DISTRESS. WILL ENDORSE
--- NOTE | 2021-05-08 19:30 | NUR ---
OPENING NOTE RECEIVED REPORT FROM DAY RN. PT STABLE. ALVES INTACT AND DRAINING YELLOW FLUID BY GRAVITY. PT DENIES PAIN AND SOB AT THIS TIME. LEFT HAND IV INTACT, SALINE LOCKED. WILL CONTINUE TO MONITOR.
[2021-05-08 20:00] VITALS: BP_SYST 159
--- NOTE | 2021-05-08 23:30 | NUR ---
CALL FROM DR. HERNANDEZ INFORMED MD WHY PATIENT HAS NOT BEEN DISCHARGED YET. PER DAY RN. DR. LYNCH REQUESTED CONSULT FOR PT WITH DR. ESPINOZA. NEW CONSULT REGARDING SURGERY FOR PT UTERINE PROLAPSE. PT AWARE.
--- NOTE | 2021-05-08 23:48 | NUR ---
DR. HINDS AT BEDSIDE MD SPEAKING TO PT ABOUT FUTURE HYSTERECTOMY WITH MD ESPINOZA. DR. HINDS EDUCATED PT ON URINE INFECTION AND POSSIBLE PROBLEMS IN THE FUTURE WITH KIDNEYS. MD HINDS EXPLAINED IN DETAIL TO PT ON OPTIONS FOR FUTURE PROCEDURES TO RELIEVE PRESSURE IN KIDNEYS. PT VERBALIZED UNDERSTANDING. PT EDUCATED ON SPEAKING TO DR. LYNCH ABOUT OPTIONS FOR FUTURE PROCEDURES NO KIDNEYS. PT THANKFUL FOR MD EDUCATION.
[2021-05-09 00:24] VITALS: BP_SYST 163
--- NOTE | 2021-05-09 00:31 | NUR ---
CONSULTATION CALLED FOR DR ESPINOZA FOR CONSULT OF UTERINE PROLAPSE ORDER BY DR LYNCH SPOKE WITH MILAGROS
--- NOTE | 2021-05-09 02:36 | NUR ---
ROUNDS PT LAYING IN BED WITH EYES CLOSED. RESPIRATIONS EVEN AND UNLABORED. NO SIGNS OF DISTRESS NOTED. WILL CONTINUE TO MONITOR.
[2021-05-09] MEDS: MEROPENEM 1 GM in NS 100 ML IV SCH (05:22)
--- NOTE | 2021-05-09 05:47 | NUR ---
ROUNDS PATIENT LAYING IN BED WITH RESPIRATIONS EVEN AND UNLABORED ON RA. PT STATES SHE IS THIRSTY AND IS CONCERNED THAT HAVING A DRY MOUTH WOULD AFFECT FUTURE SURGERY. PT EDUCATED ON ASPIRATION RISKS IN SURGERY AND NEEDING TO STAY ON "NOTHING BY MOUTH DIET". PT VERBALIZED UNDERSTANDING BUT WOULD STILL LIEK TO SPEAK WITH MD IN THE AM.
--- NOTE | 2021-05-09 06:29 | NUR ---
CLOSING NOTE PATIENT LAYING IN BED WITH EYES CLOSED. RESPIRATIONS EVEN AND UNLABORED ON RA. NO SIGNS OF DISTRESS NOTED. LEFT HAND IV PATENT AND INTACT RUNNING IV ANTIBIOTICS. PT TOLERATING WELL. ALVES CATHETER INTACT AND DRAINING YELLOW FLUID BY GRAVITY. SAFETY PRECAUTIONS IN PLACE. ALL NEEDS MET.
[2021-05-09 06:41] LABS: BASOPHILS % (AUTO) 0.7 % (0.0-2.0); EOSINOPHILS # (AUTO) 0.2 K/uL (0.0-0.4); EOSINOPHILS % (AUTO) 2.2 % (0.0-4.0); HEMOGLOBIN 11.1 g/dL (12.0-16.0); LYMPHOCYTES # (AUTO) 2.1 K/uL (1.0-5.5); LYMPHOCYTES % (AUTO) 29.6 % (20.5-51.5); MEAN CORPUSCULAR HEMOGLOBIN 30 pg (27-31); MEAN CORPUSCULAR HGB CONC 35 % (32-36); MEAN CORPUSCULAR VOLUME 88 fL (79.0-98.0); MONOCYTES # (AUTO) 0.7 K/uL (0.0-1.0); MONOCYTES % (AUTO) 10.2 % (1.7-9.3); NEUTROPHILS % (AUTO) 57.3 % (40.0-70.0); PLATELET COUNT (AUTO) 358 K/uL (130-430); RED BLOOD CELL COUNT(AUTO) 3.65 MIL/uL (4.2-6.2); RED CELL DISTRIBUTION WIDTH 13.2 % (9.0-15.0)
--- NOTE | 2021-05-09 07:25 | NUR ---
Morning Rounds: Patient resting.Maintained nothing by mouth. For possible surgery today.Iv saline lock at left hand intact. Gee draining to moderate amount of yellow urine.Call light with in reach. Bed locked at lowest position. Stable.
[2021-05-09 07:28] LABS: ALBUMIN 2.3 g/dL (3.4-4.8); CALCIUM 8.5 mg/dL (8.4-11.0); CREATININE 0.78 mg/dL (0.55-1.30); POTASSIUM 3.5 mmol/L (3.5-5.1); TOTAL BILIRUBIN 0.4 mg/dL (0.0-1.0)
[2021-05-09 08:00] VITALS: BP_SYST 159
[2021-05-09] MEDS: FAMOTIDINE 20 MG TABLET PO SCH (09:23)
[2021-05-09] MEDS: LACTOBACILLUS RHAMNOSUS GG 1 CAP CAPSULE PO SCH ×2 (09:23→20:16)
[2021-05-09] MEDS: LIPASE/PROTEASE/AMYLASE 1 CAP PO SCH ×3 (09:23→18:00)
--- NOTE | 2021-05-09 09:37 | NUR ---
CONSULTATION PAGED/CALLED Reason for Consultation: [] cardiac clearance Person Who was Notified: [] SHANELL Consulting Physician: [] DR BRAVO Coat Examiner Specialty: [] ROOM MAID Ordering Physician: [] DR REYES
--- NOTE | 2021-05-09 11:00 | NUR ---
CHG: CHG rendered.Mrsa screen done per surgery protocol.Specimen send to lab per charge nurse Katia.
[2021-05-09 11:29] LABS: INR 1.1 (0.8-1.2); PROTHROMBIN TIME 11.3 SECS (9.5-12.5)
--- NOTE | 2021-05-09 11:30 | NUR ---
BSC: Assisted patient to bsc ,had bowel movement to large amount soft greenish stools.Care rendered.
--- NOTE | 2021-05-09 11:35 | NUR ---
Medically cleared: Dr Little seen patient and medically cleared patient for surgery.
[2021-05-09 12:00] VITALS: BP_SYST 160
[2021-05-09 12:02] LABS: ERYTHROCYTE SEDIMENTATION RATE 34 MM/HR (0-20)
[2021-05-09 12:22] LABS: C-REACTIVE PROTEIN QUANT 0.7 mg/dL (0-0.5)
--- NOTE | 2021-05-09 12:40 | NUR ---
Report: Report given to Ethan or nurse.
[2021-05-09] MEDS ORDERED: LIDOCAINE MPF 1% 50 MG/5 ML AMP INJ ONE (13:49)
[2021-05-09] MEDS ORDERED: DEXAMETHASONE SOD PHOSPHATE 4 MG/ML VIAL IVP ONE (13:49)
[2021-05-09] MEDS ORDERED: MIDAZOLAM HCL 5 MG/5 ML VIAL IVP ONE (13:49)
[2021-05-09] MEDS ORDERED: ROCURONIUM BROMIDE 10 MG/ML (ZEMURON) IV ONE (13:49)
[2021-05-09] MEDS ORDERED: WATER FOR IRRIGATION,STERILE 1,000 ML IRRIG.SOLN IR ONE (13:49)
[2021-05-09] MEDS ORDERED: FUROSEMIDE 20 MG/2 ML VIAL IVP ONE (13:49)
[2021-05-09] MEDS ORDERED: ONDANSETRON HCL 4 MG/2 ML VIAL IVP ONE (13:49)
[2021-05-09] MEDS ORDERED: fentaNYL CITRATE 250 MCG/5 ML AMP IV ONE (13:49)
[2021-05-09] MEDS ORDERED: NS 1000 ML IV.SOLN IV ONE (13:49)
[2021-05-09] MEDS ORDERED: DESFLURANE 15 MIN GAS INH ONE ×2 (13:49)
[2021-05-09] MEDS ORDERED: BUPIVACAINE /PF 0.5% 30 ML VIAL INJ ONE (13:49)
[2021-05-09] MEDS ORDERED: PROPOFOL 200MG/ 20ML VIAL (DIPRIVAN) IV ONE (13:49)
[2021-05-09] MEDS ORDERED: KETOROLAC TROMETHAMINE 30 MG VIAL IVP ONE (13:49)
[2021-05-09] MEDS ORDERED: SUGAMMADEX SODIUM 200 MG/2 ML VIAL IV ONE (13:49)
--- NOTE | 2021-05-09 14:40 | NUR ---
To OR: Patient to OR per farrukh.Pre op check list done. With rivera draining to yellow urine.Stable.
[2021-05-09] MEDS ORDERED: POLYMYXIN 500,000/BACIT.10,000 UNITS in NS IRR 1 L IR ONE (14:42)
[2021-05-09] MEDS: LR 1,000 ML IV SCH ×2 (15:00→20:21)
[2021-05-09] MEDS ORDERED: METOCLOPRAMIDE HCL 10 MG/2 ML VIAL IVP PRN (15:00)
[2021-05-09] MEDS ORDERED: MEPERIDINE HCL/PF 25 MG/ML DISP.SYRIN IVP PRN (15:00)
[2021-05-09] MEDS ORDERED: LABETALOL 100 MG/ 20ML VIAL IVP PRN (15:00)
[2021-05-09] MEDS ORDERED: MIDAZOLAM HCL 2 MG/2 ML VIAL (VERSED) IVP PRN (15:00)
[2021-05-09] MEDS ORDERED: HYDROmorphone 1 MG/ML INJ. CARTRIDGE IVP PRN ×2 (15:00)
[2021-05-09] MEDS ORDERED: ACETAMINOPHEN I.V. 1000 MG 100 ML IV ONE (15:32)
[2021-05-09] MEDS: SIMETHICONE 80 MG TAB.CHEW PO SCH ×3 (17:00→21:00)
[2021-05-09] MEDS ORDERED: hydrALAZINE HCL 20 MG/ML VIAL ONE ×2 (17:52→17:57)
[2021-05-09] MEDS: hydrALAZINE HCL 20 MG/ML VIAL IVP PRN ×2 (17:56→18:20)
[2021-05-09] MEDS ORDERED: METOCLOPRAMIDE HCL 10 MG/2 ML VIAL ONE (17:57)
[2021-05-09] MEDS ORDERED: OXYCODONE/ACETAMINOPHEN 5-325 TABLET PO PRN ×2 (18:00→20:45)
--- NOTE | 2021-05-09 18:42 | NUR ---
BACK FROM OR: RECEIVED PATIENT FROM OR,PER REPORT FROM TAMMY PACU NURSE.PATIENT IS AWAKE,ALERT AND ORIENTED X3-4,DROWSY.POST OP VITAL SIGNS TAKEN,AFEBRILE AND STABLE. WITH SMALL INCISION X5, S/P ROBOTIC LAPAROSCOPIC ASSIST BSO,HYSTERECTOMY AND CYSTOSCOPY.WITH ON Q PUMP RUNNING AT 10CC/H INTACT.CALL LIGHT WITH IN REACH. ALEVS IN SITU DRAINING TO YELLOW URINE. BED LOCKED AT LOWEST POSITION. CONDITION GUARDED.
--- NOTE | 2021-05-09 19:30 | NUR ---
OPENING NOTES RECEIVED PATIENT IN BED AWAKE. NO C/O PAIN. Q PUMP INTACT. BREATHING UNLABORED ON ROOM AIR. IVF INFUSING WITH IV LINE INTACT AND PATENT. ABDOMINAL INCISIONS INTACT NO BLEEDING NOTED. CALL LIGHT WITH IN REACH.
[2021-05-09 20:06] VITALS: BP_SYST 139
--- NOTE | 2021-05-09 20:16 | NUR ---
MED PASS PATIENT DUE MEDICATIONS GIVEN. TOLERATING PO FLUIDS. NO N/V. VITAL SIGNS STABLE.
[2021-05-09] MEDS ORDERED: ONDANSETRON HCL 4 MG/2 ML VIAL IVP PRN (20:45)
[2021-05-09] MEDS ORDERED: MORPHINE SULFATE 10 MG/ML VIAL IVP PRN (20:45)
[2021-05-09] MEDS ORDERED: NALOXONE HCL 0.4 MG/ML AMP (NARCAN) IVP PRN ×2 (20:45)
[2021-05-09] MEDS ORDERED: HYDROcodone/ACETAMIN 5-325 MG TAB (NORCO/ VICODIN) PO PRN (20:45)
--- NOTE | 2021-05-09 21:35 | NUR ---
IS PATIENT INSTRUCTED ON HOW TO USE INCENTIVE SPIROMETER. PATIENT UNABLE TO TOLERATE IS USE AT THIS TIME. INSTRUCTED TO TRY AGAIN LATER ENCOURAGED PATIENT TO USE IT WHILE AWAKE.
--- NOTE | 2021-05-09 23:00 | NUR ---
ROUNDS ALVES URINE OUTPUT ADEQUATE NO BLEEDING NOTED. NO C/O PAIN. CALL LIGHT WITH IN REACH.
[2021-05-10] VITALS (7 sets, daily range): BP systolic 128–167
--- NOTE | 2021-05-10 03:00 | NUR ---
ROUNDS PATIENT AWAKE IN BED. DENIES PAIN. Q PUMP INTACT. IVF INFUSING. URINE OUTPUT ADEQUATE.
[2021-05-10] MEDS: LR 1,000 ML IV SCH (06:05)
--- NOTE | 2021-05-10 06:45 | NUR ---
CLOSING NOTES PATIENT AWAKE. IVF INFUSING WITH IV LINE INTACT. Q PUMP INTACT. ABDOMINAL INCISIONS DRY AND INTACT NO BLEEDING NOTED. PATIENT NEEDS ATTENDED.
--- NOTE | 2021-05-10 07:20 | NUR ---
Seen and examined by the urologist per MD to keep the Gee catheter on discharge to see him in 1 week in the clinic
[2021-05-10] MEDS: LIPASE/PROTEASE/AMYLASE 1 CAP PO SCH ×3 (08:08→16:59)
[2021-05-10] MEDS: LACTOBACILLUS RHAMNOSUS GG 1 CAP CAPSULE PO SCH ×2 (08:09→20:11)
[2021-05-10] MEDS: FAMOTIDINE 20 MG TABLET PO SCH ×3 (08:09→09:00)
[2021-05-10] MEDS: SIMETHICONE 80 MG TAB.CHEW PO SCH ×4 (08:09→20:11)
--- NOTE | 2021-05-10 08:09 | NUR ---
Patient refused for blood pressure medication even after explaining the indication , side effect if she will not take the medicine, patient is saying shes very sensitive to blood pressure medication Addendum: 05/10/21 at 0823 by Luisana Elliott RN [employer] Architect Dr. Little informed that patient refusing for blood pressure medication
[2021-05-10 08:40] LABS: BASOPHILS % (AUTO) 0.3 % (0.0-2.0); EOSINOPHILS % (AUTO) 0.4 % (0.0-4.0); HEMATOCRIT 33.9 % (36-48); HEMOGLOBIN 11.6 g/dL (12.0-16.0); LYMPHOCYTES # (AUTO) 2.2 K/uL (1.0-5.5); LYMPHOCYTES % (AUTO) 21.6 % (20.5-51.5); MEAN CORPUSCULAR HEMOGLOBIN 30 pg (27-31); MEAN CORPUSCULAR HGB CONC 34 % (32-36); MEAN CORPUSCULAR VOLUME 88 fL (79.0-98.0); MONOCYTES # (AUTO) 0.8 K/uL (0.0-1.0); MONOCYTES % (AUTO) 7.5 % (1.7-9.3); NEUTROPHILS # (AUTO) 7.2 K/uL (1.8-7.7); NEUTROPHILS % (AUTO) 70.2 % (40.0-70.0); PLATELET COUNT (AUTO) 429 K/uL (130-430); RED BLOOD CELL COUNT(AUTO) 3.84 MIL/uL (4.2-6.2); RED CELL DISTRIBUTION WIDTH 13.4 % (9.0-15.0); WHITE BLOOD COUNT (AUTO) 10.3 K/uL (4.8-10.8)
--- NOTE | 2021-05-10 09:57 | NUR ---
Mobility Ambulate to hallway using FWW with stand bye assist little shaky no dizziness tolerates well.
--- NOTE | 2021-05-10 10:20 | NUR ---
CM: RECEIVED CALL FROM [facility], SPOKE WITH MARGOTH IN ADMISSIONS, STATED THAT PATIENT HAS ROOM #1A AVAILABLE FOR TRANSFER TODAY WHEN READY, CALL MADE TO [facility], SCHEDULED PICK-UP TIME FOR 2000P, NURSE PAUL WATERMAN, # FOR REPORT , DISCHARGE ORDER GIVEN BY , CLEARED BY .
--- NOTE | 2021-05-10 13:00 | NUR ---
Acknowledgement of transfer to [facility] was given by the patient and signed, report given to Jolanta/ANJALI in [facility] with all the information brick picker time arranged by the case management @ 8 pm patient is aware,and informed his son Thaddeus Anand phone [phone] regarding the transfer.
--- NOTE | 2021-05-10 14:00 | NUR ---
Seen and examined by Heriberto Tariq , and said cleared for discharged today.
[2021-05-10] MEDS ORDERED: ROCPM1 IV (16:09)
--- NOTE | 2021-05-10 19:40 | NUR ---
Opening note Patient is awake, AOx4, sitting on bed w/legs dangle and she was assisted to bedside commode. She had a soft formed small, dark BM. She returned to bed. SCD's connected, bed alarm on and call light w/in reach. No distress, she is on room air.
--- NOTE | 2021-05-10 20:11 | NUR ---
Meds scheduled meds given; she took capsule with water and was instructed to chew Mylicon.
--- NOTE | 2021-05-10 21:30 | NUR ---
Report to EMT Bedside SBAR report given to NICHOLE Horton with [facility]
--- NOTE | 2021-05-10 21:51 | NUR ---
PT TRANSFERRED Report given by ANJALI Lieberman in day shift to [facility]. Transfer packet with Transfer Orders and Medication Reconciliation form given to EMT with report. Exitcare provided. [facility] ID band removed, replaced with ID band with pt's name and . IV catheter is patent and in place. She is going with Gee catheter and On-Q-pain pump. All belongings sent with patient including her purse which she insisted on holding herself. Patient left floor via gurney escorted by EMT in no distress, V/S: B/P 142/86, HR 82.
--- NOTE | 2021-05-11 10:39 | NUR ---
PHYSICAL THERAPY CO-SIGN The Physical Therapy Progress Notes documented by [employer] have been reviewed. Reviewed/Co-Signed by: Trevor Lund Documentation Done by: NELIDA GODWIN PTA Addendum: 05/11/21 at 1040 by Trevor Lund PT Amended: Links added.
== END 2021-05-10 21:51 | DRG 853 ==
LOC: SED 09:39 → SMU 12:09
PROVIDERS: ADMIT Internal Medicine Hospice and Palliative Medicine; ATTEND Internal Medicine Hospice and Palliative Medicine
PROC: 0UB74ZZ Excision of Bilateral Fallopian Tubes, Percutaneous Endoscopic Approach (ICD-10-PCS; 2021-05-09)
PROC: 0USG4ZZ Reposition Vagina, Percutaneous Endoscopic Approach (ICD-10-PCS; 2021-05-09)
PROC: 0UB24ZZ Excision of Bilateral Ovaries, Percutaneous Endoscopic Approach (ICD-10-PCS; 2021-05-09)
PROC: 3E0T3BZ Introduction of Anesthetic Agent into Peripheral Nerves and Plexi, Percutaneous Approach (ICD-10-PCS; 2021-05-09)
PROC: 0UT9FZZ Resection of Uterus, Via Natural or Artificial Opening With Percutaneous Endoscopic Assistance (ICD-10-PCS; principal; 2021-05-09 13:49)
DX: A41.59 Other Gram-negative sepsis (principal); E43 Unspecified severe protein-calorie malnutrition; K57.92 Diverticulitis of intestine, part unspecified, without perforation or abscess without bleeding; N13.6 Pyonephrosis; Z68.1 Body mass index [BMI] 19.9 or less, adult; N32.0 Bladder-neck obstruction; N81.3 Complete uterovaginal prolapse; K80.20 Calculus of gallbladder without cholecystitis without obstruction; D64.9 Anemia, unspecified; E78.5 Hyperlipidemia, unspecified; E83.52 Hypercalcemia; E87.6 Hypokalemia; F31.9 Bipolar disorder, unspecified; I10 Essential (primary) hypertension; J44.9 Chronic obstructive pulmonary disease, unspecified; R33.8 Other retention of urine; K58.9 Irritable bowel syndrome, unspecified; Z20.822 Contact with and (suspected) exposure to COVID-19; Z91.011 Allergy to milk products; Z88.0 Allergy status to penicillin; Z88.8 Allergy status to other drugs, medicaments and biological substances; Z91.018 Allergy to other foods; Z59.00 Homelessness unspecified
CPT/HCPCS: 36415; 71045; 76376; 76770; 80048; 80053; 81000; 83605; 83690; 85007; 85025; 85027; 85610-TC; 85651-TC; 85730-TC; 86140; 87040-TC; 87045-TC; 87046; 87081; 87086; 87177; 87230-TC; 88307; 89055; 93005; 93306; 96365; 97110-GP; 97116-GP; 97530-GP; 99285; C1727; E0190; J0131; J0360; J0696; J1100; J1580; J1885; J1940; J2001; J2185; J2250; J2405; J2704; J2765; J3010; J3370; J3480; J3490; J7030; J7050; J7060